=== PATIENT | male | born 1950 | race Asian ===

== ENCOUNTER 2019-05-06 06:13 | Emergency (ER) | payer MEDICARE, OTHER ==
[~2019-05-06] VITALS: Ht 167.6 cm; Wt 61.4 kg
[2019-05-06] MEDS ORDERED: TIOT185 IH (06:31)
[2019-05-06] MEDS ORDERED: INSU100C6 SQ (06:31)
[2019-05-06 06:32] LABS: GLUCOSE,POINT OF CARE 200 MG/DL (70-110)
[2019-05-06] MEDS ORDERED: NITROGLYCERIN 2% (1 GM=INCH) PACKET TP ONE ×2 (06:42→06:45)
[2019-05-06] MEDS ORDERED: ASPIRIN 81 MG CHEWABLE TABLET ONE (06:43)
[2019-05-06] MEDS ORDERED: NITROGLYCERIN 0.4 MG SUBLINGUAL TABLET #25 SL ONE ×2 (06:43→06:45)
[2019-05-06] MEDS ORDERED: LABETALOL HCL 5 MG/ML 20 ML VIAL IVP ONE ×2 (06:43→06:45)
[2019-05-06] MEDS ORDERED: MORPHINE SULFATE 4 MG/ML SYRINGE IVP ONE (06:45)
[2019-05-06] MEDS ORDERED: ONDANSETRON HCL 4 MG/2 ML VIAL IVP ONE (06:45)
[2019-05-06] MEDS ORDERED: ASPIRIN 81 MG CHEWABLE TABLET PO ONE (06:45)
[2019-05-06 06:55] LABS: EOSINOPHILS % (AUTO) 2.6 % (1.0-6.0); HEMATOCRIT 39.7 % (41-53); HEMOGLOBIN 13.5 g/dL (13.5-17.5); LYMPHOCYTES # (AUTO) 1.7 K/uL (1.0-4.8); LYMPHOCYTES % (AUTO) 24.6 % (22.0-44.0); MEAN CORPUSCULAR HEMOGLOBIN 30.2 pg (26.0-34.0); MEAN CORPUSCULAR VOLUME 89 fL (80-100); MONOCYTES # (AUTO) 0.6 K/uL (0.1-1.0); MONOCYTES % (AUTO) 8.4 % (2.0-9.0); NEUTROPHILS # (AUTO) 4.5 K/uL (1.8-7.7); NEUTROPHILS % (AUTO) 63.4 % (40.0-70.0); PLATELET COUNT (AUTO) 171 K/uL (150-450); RED BLOOD CELL COUNT(AUTO) 4.48 MIL/uL (4.50-5.90); RED CELL DISTRIBUTION WIDTH 14.8 % (11.5-14.5)
[2019-05-06] MEDS ORDERED: HEPARIN SODIUM,PORCINE 5,000 UNITS/ML VIAL ONE (07:00)
[2019-05-06] MEDS ORDERED: ATORVASTATIN CALCIUM 40 MG TABLET PO ONE (07:00)
[2019-05-06] MEDS ORDERED: HEPARIN SODIUM,PORCINE 5,000 UNITS/ML VIAL IVP ONE (07:00)
[2019-05-06 07:02] VITALS: BP 137/79
[2019-05-06 07:04] LABS: PROTHROMBIN TIME 9.7 SEC (9.4-11.6)
[2019-05-06 07:49] LABS: CREATININE 3.37 mg/dL (0.60-1.30); POTASSIUM 4.6 mmol/L (3.5-5.1)
[2019-05-06 08:20] LABS: ALBUMIN 3.2 g/dL (3.4-5.0); BILIRUBIN,TOTAL 0.4 mg/dL (0.1-1.0); TOTAL PROTEIN, SERUM 7.2 g/dL (6.4-8.2)
== END 2019-05-06 07:10 | disposition short-term general hospital (02) ==
LOC: EMS 06:17
DX: I21.9 Acute myocardial infarction, unspecified (principal); E11.9 Type 2 diabetes mellitus without complications; I10 Essential (primary) hypertension; F17.210 Nicotine dependence, cigarettes, uncomplicated; Z79.4 Long term (current) use of insulin; Z98.890 Other specified postprocedural states
CPT/HCPCS: 36415; 71045; 80053; 82550; 82962; 83880; 84484; 85025; 85610; 85730; 93005; 96374; 96375; 99291; J1644; J2270; J2405; J3490